=== PATIENT | female | born 1935 | race Caucasian/White ===

== ENCOUNTER 2019-05-12 07:23 | Day surgery (SDC) | payer MEDICARE ==
[2019-05-11 13:29] VITALS: BMI 25.5
[2019-05-12 08:47] LABS: #Eosinphils 0.2 thou/uL (0.0-0.7); #Lymphocytes 1.3 thou/uL (1.20-3.40); #Monocytes 0.5 thou/uL (0.11-0.59); #Neutrophils 4.1 thou/uL (1.40-6.50); %Basophils 0.1 % (0.0-1.0); %Eosinophils 3.5 % (0.0-10.0); %Lymphocytes 21.6 % (21.0-51.0); %Monocytes 7.7 % (0.0-10.0); %Neutrophils 67.1 % (42.0-75.0); Hemoglobin 12.3 g/dL (12.0-16.0); Mean Corpuscular HGB CONC 34.1 g/dL (32.0-36.0); Mean Corpuscular Hemoglobin 30.6 pg (27.0-31.0); Mean Corpuscular Volume 89.7 fL (78.0-98.0); Mean Platelet Volume 6.5 fL (7.4-10.4); Platelet Count 258 thou/uL (130-400); RBC Distribution Width 12.2 % (11.5-14.5); Red Blood Cell (RBC) Count 4.03 mill/uL (4.20-5.40); White Blood Cell (WBC) Count 6.1 thou/uL (4.8-10.8)
[2019-05-12 08:51] LABS: PTT 26.4 SEC (22.9-36.1); Prothrombin Time 12.8 SEC (12.0-14.7)
[2019-05-12] MEDS ORDERED: Sodium Chloride 0.9% 10 ML ONE (09:05)
[2019-05-12] MEDS ORDERED: Fentanyl 100 MCG/2 ML VIAL ONE ×2 (09:11→12:55)
[2019-05-12] MEDS ORDERED: Phenylephrine HCL 10 MG/ML VIAL ONE (09:12)
[2019-05-12] MEDS ORDERED: ceFAZolin Sodium (SDC) 2 GM/100 ML BAG ONE (09:14)
[2019-05-12 09:34] LABS: Anion Gap 10 mmol/L (10-20); Calcium 9.8 mg/dL (7.8-10.44); Carbon Dioxide 26 mmol/L (23-31); Chloride 100 mmol/L (98-107); Glucose 105 mg/dL (83-110); Potassium 4.4 mmol/L (3.5-5.1); Sodium 132 mmol/L (136-145)
[2019-05-12 09:39] LABS: Calc. Creatinine Clearance 47 mL/min (70-130); Estimated GFR-MDRD 55
[2019-05-12 09:40] LABS: BUN (Urea Nitrogen) 19 mg/dL (9.8-20.1)
[2019-05-12] MEDS ORDERED: Zolpidem Tartrate 5 MG TAB PO PRN (11:54)
[2019-05-12] MEDS ORDERED: Bisacodyl 10 MG SUPP PR PRN (11:54)
[2019-05-12] MEDS ORDERED: Mag-Al 1200 mg/1200 mg/30 ML UDCUP PO PRN (11:54)
[2019-05-12] MEDS ORDERED: Ondansetron PF 4 MG/2 ML Vial IVP PRN (11:54)
[2019-05-12] MEDS ORDERED: Milk Of Magnesia 30 ML UDCUP PO PRN (11:54)
[2019-05-12] MEDS ORDERED: tiZANidine HCl 4 MG TAB PO PRN (11:54)
[2019-05-12] MEDS ORDERED: Promethazine HCl 25 MG/ML VIAL IM PRN (12:15)
[2019-05-12] MEDS ORDERED: Promethazine HCl 25 MG/ML VIAL SLOW IVP PRN (12:15)
[2019-05-12] MEDS ORDERED: Ondansetron HCl/PF 4 MG/2 ML Vial IVP PRN (12:15)
--- NOTE | 2019-05-12 12:36 | OP ---
DATE OF PROCEDURE: 05/12/2019 LOCATION: OR 12. WOUND CLASSIFICATION: Type 1 wound. WOOD MACHINIST APPRENTICE: Jose Alfredo Aguilar PA-C PREPROCEDURE DIAGNOSES: Multilevel lumbar stenosis with low back and leg pain with history of prior L4-L5 surgery with L4-L5 spondylolisthesis. POSTPROCEDURE DIAGNOSES: Multilevel lumbar stenosis with low back and leg pain with history of prior L4-L5 surgery with L4-L5 spondylolisthesis. PROCEDURES PERFORMED: 1. L2-L3, L3-L4 laminectomies, partial facetectomies, foraminotomies. 2. Bilateral L4-L5 revision hemilaminotomies, foraminotomies. 3. In-situ fusion of posterolateral regions L4-L5 to treat spondylolisthesis. 4. Use of local bone autograft obtained with same incision allograft for arthrodesis L4-L5. DESCRIPTION OF PROCEDURE: After informed consent was obtained from the patient, the patient was brought to the OR. Proper patient, pause, and identification were carried out. She was then placed under excellent general endotracheal anesthesia and positioned prone on the OR table. All appropriate points were padded. We identified the prior L4-L5 wound and we utilized this for the L2-L3, L3-L4, and L4-L5 approach. This region was sterilely cleansed, prepared, and draped. Proper patient, pause, and identification were carried out. The wound was then opened with combination of sharp, monopolar, and blunt dissection, and the L2-L3, L3-L4, and L4-L5 segments were exposed. Localization film confirmed our area of interest and then performed L2-L3, L3-L4 laminectomies, partial facetectomies, foraminotomies, bilateral revision L4-L5 hemilaminotomies, foraminotomies, posterolateral arthrodesis was then initiated with local bone autograft obtained with same incision allograft following decortication with the use of in-situ fusion methods. Copious irrigation occurred throughout as did maximizing hemostasis. The wound was then closed in anatomic layers and the patient emerged from anesthesia. Job ID: [id number]
[2019-05-12] MEDS ORDERED: traMADol HCl 50 MG TAB PO PRN (14:56)
[2019-05-12] MEDS: Sodium Chloride 0.9% 1,000 ML IV SCH (15:06)
[2019-05-12] MEDS: Gabapentin 300 MG CAP PO SCH ×2 (15:33→20:30)
[2019-05-12] MEDS: Cholecalciferol (Vitamin D3) 400 UNITS TAB PO SCH (20:30)
[2019-05-12] MEDS: Carvedilol 6.25 MG TAB PO SCH (20:30)
[2019-05-12] MEDS: Lorazepam 1 MG TAB PO SCH (20:30)
[2019-05-12] MEDS: CEFAZOLIN 2 GM, Admixture Fee 1 EACH in Sodium Chloride 0.9% 100 ML IVPB SCH (22:30)
[2019-05-13] MEDS: Sodium Chloride 0.9% 1,000 ML IV SCH ×3 (00:48→22:18)
[2019-05-13] MEDS: CEFAZOLIN 2 GM, Admixture Fee 1 EACH in Sodium Chloride 0.9% 100 ML IVPB SCH ×3 (05:49→22:18)
[2019-05-13] MEDS: Polyethylene Glycol 3350 17 GM Packet PO SCH (08:33)
[2019-05-13] MEDS: Losartan 25 MG TAB PO SCH (08:35)
[2019-05-13] MEDS: Carvedilol 6.25 MG TAB PO SCH ×2 (08:35→20:54)
[2019-05-13] MEDS: Gabapentin 300 MG CAP PO SCH ×3 (08:35→20:54)
[2019-05-13] MEDS: Magnesium Oxide 250 MG TAB PO SCH (08:35)
--- NOTE | 2019-05-13 11:42 | PRG ---
DATE OF SERVICE: 05/13/2019 Ms. Boyle is postoperative day 1 from lumbar decompression and in situ fusion at L4-L5. We are working with inpatient rehab to try and get her there. She has good strength throughout her lower extremities and is mobilizing. She has improvement in her leg pain. Job ID: [id number]
[2019-05-13] MEDS: Citalopram 10 MG TAB PO SCH (12:34)
[2019-05-13] MEDS: Lorazepam 1 MG TAB PO SCH (20:53)
[2019-05-13] MEDS: Cholecalciferol (Vitamin D3) 400 UNITS TAB PO SCH (20:54)
[2019-05-14] MEDS: CEFAZOLIN 2 GM, Admixture Fee 1 EACH in Sodium Chloride 0.9% 100 ML IVPB SCH (06:46)
[2019-05-14] MEDS: Magnesium Oxide 250 MG TAB PO SCH (08:59)
[2019-05-14] MEDS: Gabapentin 300 MG CAP PO SCH (08:59)
[2019-05-14] MEDS: Polyethylene Glycol 3350 17 GM Packet PO SCH (08:59)
[2019-05-14] MEDS: Carvedilol 6.25 MG TAB PO SCH (09:00)
[2019-05-14] MEDS: Citalopram 10 MG TAB PO SCH (09:00)
[2019-05-14] MEDS: Losartan 25 MG TAB PO SCH (09:01)
--- NOTE | 2019-05-14 13:19 | PRG ---
DATE OF SERVICE: 05/14/2019 Ms. Boyle is postop day 2 from lumbar decompression and is doing well, she is mobilizing. She had a decrease in her blood pressure with the muscle relaxant. As such, we will half her dose of 2 mg of the tizanidine. She has been accepted to inpatient rehab and I am fine with this. Job ID: [id number]
[2019-05-14 16:14] VITALS: BP 166/82; TEMP 98.2
== END 2019-05-14 16:46 ==
LOC: SDC 07:23 → SJJU 11:54 → SDC 05-14 16:46
PROVIDERS: ATTEND Surgery
PROC: 01NB0ZZ Release Lumbar Nerve, Open Approach (ICD-10-PCS; principal; 2019-05-12)
PROC: 0SG0071 Fusion of Lumbar Vertebral Joint with Autologous Tissue Substitute, Posterior Approach, Posterior Column, Open Approach (ICD-10-PCS; 2019-05-12)
PROC: 0RG407J Fusion of Cervicothoracic Vertebral Joint with Autologous Tissue Substitute, Posterior Approach, Anterior Column, Open Approach (ICD-10-PCS; 2019-05-12)
PROC: 0SG30K1 Fusion of Lumbosacral Joint with Nonautologous Tissue Substitute, Posterior Approach, Posterior Column, Open Approach (ICD-10-PCS; 2019-05-12)
PROC: 01NB0ZZ Release Lumbar Nerve, Open Approach (ICD-10-PCS; 2019-05-12)
DX: M48.061 Spinal stenosis, lumbar region without neurogenic claudication (principal)
CPT/HCPCS: 36415; 76000; 80048; 85025; 85610; 85730; J0690; J2370; J3010; J3370; J3490

== ENCOUNTER 2019-06-12 17:00 | Emergency (ER) | payer MEDICARE ==
[2019-06-12 18:21] LABS: #Eosinphils 0.4 thou/uL (0.0-0.7); #Lymphocytes 1.3 thou/uL (1.20-3.40); #Monocytes 0.6 thou/uL (0.11-0.59); #Neutrophils 5.4 thou/uL (1.40-6.50); %Basophils 0.3 % (0.0-1.0); %Eosinophils 4.7 % (0.0-10.0); %Lymphocytes 17.2 % (21.0-51.0); %Neutrophils 69.8 % (42.0-75.0); Hemoglobin 10.9 g/dL (12.0-16.0); Mean Corpuscular HGB CONC 33.6 g/dL (32.0-36.0); Mean Corpuscular Hemoglobin 29.7 pg (27.0-31.0); Mean Corpuscular Volume 88.4 fL (78.0-98.0); Mean Platelet Volume 6.6 fL (7.4-10.4); Platelet Count 280 thou/uL (130-400); RBC Distribution Width 12.5 % (11.5-14.5); Red Blood Cell (RBC) Count 3.66 mill/uL (4.20-5.40); White Blood Cell (WBC) Count 7.7 thou/uL (4.8-10.8)
[2019-06-12 18:44] LABS: ALT (SGPT) 19 U/L (8-55); AST (SGOT) 16 U/L (5-34); Albumin 4.1 g/dL (3.4-4.8); Alkaline Phosphatase 132 U/L (40-150); Anion Gap 13 mmol/L (10-20); BUN (Urea Nitrogen) 17 mg/dL (9.8-20.1); Bilirubin, Total 0.3 mg/dL (0.2-1.2); Calc. Creatinine Clearance 0 mL/min (70-130); Calcium 9.6 mg/dL (7.8-10.44); Carbon Dioxide 25 mmol/L (23-31); Chloride 97 mmol/L (98-107); Estimated GFR-MDRD 65; Globulin 2.6 g/dL (2.4-3.5); Glucose 114 mg/dL (83-110); Potassium 4.2 mmol/L (3.5-5.1); Protein, Total 6.7 g/dL (6.0-8.3); Sodium 131 mmol/L (136-145)
== END 2019-06-12 20:11 | disposition home or self-care (01) ==
LOC: ERS 17:00
DX: T81.40XA Infection following a procedure, unspecified, initial encounter (principal); K21.9 Gastro-esophageal reflux disease without esophagitis; I10 Essential (primary) hypertension; F41.9 Anxiety disorder, unspecified
CPT/HCPCS: 80053; 83605; 85025; 85652; 86140; 87040; 99283

== ENCOUNTER 2020-02-05 12:54 | Emergency (ER) | payer MEDICARE ==
[2020-02-05 13:29] LABS: #Eosinphils 0.2 thou/uL (0.0-0.7); #Lymphocytes 1.2 thou/uL (1.20-3.40); #Monocytes 0.9 thou/uL (0.11-0.59); #Neutrophils 5.9 thou/uL (1.40-6.50); %Basophils 0.5 % (0.0-1.0); %Eosinophils 2.3 % (0.0-10.0); %Lymphocytes 15.1 % (21.0-51.0); %Monocytes 10.6 % (0.0-10.0); %Neutrophils 71.5 % (42.0-75.0); Hemoglobin 12.1 g/dL (12.0-16.0); Mean Corpuscular HGB CONC 33.1 g/dL (32.0-36.0); Mean Corpuscular Hemoglobin 30.1 pg (27.0-31.0); Platelet Count 270 thou/uL (130-400); RBC Distribution Width 12.6 % (11.5-14.5); Red Blood Cell (RBC) Count 4.02 mill/uL (4.20-5.40); White Blood Cell (WBC) Count 8.2 thou/uL (4.8-10.8)
[2020-02-05 13:44] LABS: ALT (SGPT) 15 U/L (8-55); AST (SGOT) 14 U/L (5-34); Albumin 3.9 g/dL (3.4-4.8); Alkaline Phosphatase 109 U/L (40-110); Anion Gap 14 mmol/L (10-20); BUN (Urea Nitrogen) 12 mg/dL (9.8-20.1); Bilirubin, Total 0.3 mg/dL (0.2-1.2); Calc. Creatinine Clearance 0 mL/min (70-130); Calcium 9.4 mg/dL (7.8-10.44); Carbon Dioxide 27 mmol/L (23-31); Chloride 98 mmol/L (98-107); Estimated GFR-MDRD 47; Globulin 2.1 g/dL (2.4-3.5); Glucose 94 mg/dL (83-110); Potassium 4.5 mmol/L (3.5-5.1); Sodium 134 mmol/L (136-145)
--- NOTE | 2020-02-05 14:27 | RAD ---
XR Elbow Lt 2 View INDICATION: Fall with left elbow pain FINDINGS: Bones: There is diffuse osteopenia. There is suspicion for a depression-type fracture involving the a nterior and medial aspect of the radial head. No displaced fracture is evident. Joints: No definite joint capsular distention is present. Soft tissues: No radiopaque foreign body is evident. IMPRESSION: Small impaction type fracture involving the anterior medial radial head.
--- NOTE | 2020-02-05 14:28 | RAD ---
XR Ankle Rt 3 View STANDARD INDICATION: Right ankle injury COMPARISON: None. FINDINGS: Bones: Intact. Ankle mortise: Symmetric. Talar Dome: Intact. Subtalar joint: Normal. Visualized hindfoot: Normal. Periarticular soft tissues: There are vascular calcifications within the soft tissues. There is diffu se soft tissue swelling of distal right foreleg, ankle and hindfoot. IMPRESSION: 1. No acute fracture or subluxation demonstrated. Soft tissue swelling of the right lower extremity.
--- NOTE | 2020-02-05 14:28 | RAD ---
Chest AP view INDICATION: Fall with chest pain COMPARISON: February 25, 2016 FINDINGS: Lungs: There is stable scarring within the medial right upper lobe. No acute airspace opacities or p leural effusion is evident. Cardiac silhouette: The cardiomediastinal silhouette appears within normal limits. Pulmonary vasculature: Normal Pleural spaces: No pleural effusion or pneumothorax is demonstrated. Upper abdomen: No abnormality seen. Osseous structures: No acute osseous abnormality. Additional findings: None. IMPRESSION: No acute cardiopulmonary abnormality.
== END 2020-02-05 15:40 | disposition home or self-care (01) ==
LOC: ERS 12:54
DX: S52.122A Displaced fracture of head of left radius, initial encounter for closed fracture (principal); K21.9 Gastro-esophageal reflux disease without esophagitis; I10 Essential (primary) hypertension; F41.9 Anxiety disorder, unspecified; G62.9 Polyneuropathy, unspecified; W17.89XA Other fall from one level to another, initial encounter
CPT/HCPCS: 36415; 71045; 80053; 84484; 85025; 93005; 94760